=== PATIENT | male | born 1980 | race Caucasian/White ===

== ENCOUNTER 2017-03-23 19:16 | Emergency (ER) | payer MEDICAID, OTHER ==
[~2017-03-23] VITALS: Ht 170.2 cm; Wt 79.0 kg
[2017-03-23 19:24] VITALS: Ht 170.2 cm; Wt 79.0 kg
[2017-03-23] MEDS ORDERED: HYDROCODONE/APAP (5/325) TAB PO ONE (21:00)
--- NOTE | 2017-03-23 21:31 | RADRPT ---
PROCEDURE: CT Brain without contrast. CLINICAL INDICATION: Headache status post fall. TECHNIQUE: A CT of the brain was performed on a multidetector CT scanner utilizing axial sections from the skull base through the vertex without contrast. Images were reviewed on a high-resolution Modbook workstation. Exam CTDI = 42.69 mGy and the DLP = 720.22 mGy-cm. One or more of the following dose reduction techniques were used: Automated exposure control Adjustment of the mA and/or kV according to patient size. Use of iterative reconstruction technique. COMPARISON: None available FINDINGS: There is no evidence of intracranial hemorrhage, mass effect or midline shift. No abnormal intra-ax ial or extra-axial fluid collections are seen. The density of the brain is normal and the venegas/whit e matter differentiation is well preserved. 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 The osseous structures are unremarkable. The paranasal sinuses are clear. IMPRESSION: 1. No intracranial hemorrhage, mass effect or midline shift. 2. 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 RPTAT: HHO .Jose Manuel Patricia MD, Date Time Electronically viewed and signed by .Jose Manuel Patricia MD, on 03/23/2017 21:30 .O/
--- NOTE | 2017-03-23 21:37 | RADRPT ---
PROCEDURE: CT Cervical Spine. CLINICAL INDICATION: Neck pain status post fall TECHNIQUE: A CT of the cervical spine was performed on a multi-slice CT scanner utilizing high-res olution axial imaging from the skull base through the cervical thoracic junction. Sagittal, coronal , and multiplanar reformatted images were made. CTD I: 22.27 mGy and DLP: 534.31 mGy-cm One or more of the following dose reduction techniques were used: Automated exposure control. Adjustment of the mA and/or kV according to patient size. Use of iterative reconstruction technique. COMPARISON: None FINDINGS: There is straightening of the cervical lordosis. No vertebral body subluxation is seen. No fractur es are evident. The posterior elements are normally aligned. The surrounding soft tissues are norm al in appearance. The intervertebral discs are normal in height. No significant disk bulge or prot rusion is seen. The central canal and foramina are adequately patent at all levels. IMPRESSION: No acute fracture or traumatic malalignment. RPTAT: HHO .Jose Manuel Patricia MD, Date Time Electronically viewed and signed by .Jose Manuel Patricia MD, on 03/23/2017 21:36 .O/
--- NOTE | 2017-03-23 22:05 | RADRPT ---
PROCEDURE: XR thoracic Spine. CLINICAL INDICATION: Trauma to the thoracic spine status post fall off of 6 feet ladder. TECHNIQUE: AP and lateral views of the thoracic spine were obtained. COMPARISON: No prior studies are available for comparison. FINDINGS: There is normal vertebral mineralization and alignment. No acute fracture or subluxation is seen. The disc spaces are normal in appearance. The posterior elements are unremarkable. The soft tissues appear normal. IMPRESSION: Unremarkable thoracic spine. RPTAT: [facility] Physician Jeffrey Date Time Electronically viewed and signed by Physician Jeffrey on 03/23/2017 22:05 RS/
--- NOTE | 2017-03-23 22:07 | RADRPT ---
PROCEDURE: XR Lumbar Spine. CLINICAL INDICATION: Low back pain status post fall off of 6 foot ladder. TECHNIQUE: AP, lateral and cone-down lateral view of the lumbar spine were obtained. COMPARISON: No prior studies are available for comparison. FINDINGS: There is normal vertebral mineralization and alignment. No fracture or subluxation is seen. Very mild disk space narrowing at the L4-5 level. Otherwise, the remaining disc spaces are normal i n appearance. Mild degenerative changes at the L5-S1 posterior facets. Otherwise, the remaining posterior element s are unremarkable. Question mild to moderate degenerative changes in the left sacroiliac joint. The soft tissues appear normal. IMPRESSION: No acute fracture. RPTAT: [facility] Physician Jeffrey Date Time Electronically viewed and signed by Physician Jeffrey on 03/23/2017 22:06 RS/
--- NOTE | 2017-03-23 22:27 | ERD ---
ER Documentation Chief Complaint Date/Time DATE: 03/23/17 TIME: 22:25 Chief Complaint FALL YESTERDAY OFF 6FT LADDER, HIT HEAD DENIES KO. C/O ROBERTS +LAC TO HEAD HPI This is a 36-year-old male presents to the emergency department today complaining of headache, laceration to the back of his head and neck and back pain after falling off a 6 foot ladder while doing some work on the house. States he has not taken any medication for the pain. States that he thinks he lost consciousness for approximately 5 seconds. Denies any fevers or chills, vomiting. ROS All systems reviewed and are negative except as per history of present illness. Medications Home Meds Active Scripts Naproxen* (Naprosyn*) 500 Mg Tablet, 500 MG PO BID Y for PAIN AND/OR INFLAMMATION, #30 TAB Prov:BRIELLE REES PA-C 03/23/17 Hydrocodone/Acetaminophen ([place] 5-325 Tablet) 1 Each Tablet, 1 TAB PO Q6H Y for PAIN, #10 TAB Prov:BRIELLE REES PA-C 03/23/17 PMhx/Soc Medical and Surgical Hx: pt denies Medical Hx, pt denies Surgical Hx Hx Alcohol Use: No Hx Substance Use: No Hx Tobacco Use: No Smoking Status: Never smoker Physical Exam Vitals Vital Signs Date Time Temp Pulse Resp B/P Pulse Ox O2 Delivery O2 Flow Rate FiO2 03/23/17 22:59 68 20 112/61 98 Room Air 03/23/17 19:24 98.6 54 18 119/67 99 Physical Exam Const: NAD Head: 2 cm laceration post aspect of head with scabbing Eyes: Normal Conjunctiva. PERRLA, EOM intact ENT: Normal External Ears, Nose and Mouth. Neck: Full range of motion..~ No meningismus. Pulses 2 +. DNVI Resp: Clear to auscultation bilaterally Cardio: Regular rate and rhythm, no murmurs Abd: Soft, non tender, non distended. Normal bowel sounds Skin: Abrasions thoracic and lumbar spine Back: Mild thoracic and lumbar spine midline tenderness. Pulses 2+. DNVI. Full AROM Ext: No cyanosis, or edema Neur: Awake and alert Psych: Normal Mood and Affect Results 24 hrs Current Medications Medications (Trade) Dose Ordered Sig/Da Route PRN Reason Start Time Stop Time Status Last Admin Dose Admin Acetaminophen/ Hydrocodone Bitart ([place] (5/325)) 1 tab ONCE ONCE PO 03/23/17 21:00 03/23/17 21:01 DC 03/23/17 21:32 Diphtheria/ Tetanus/Acell Pertussis (Adacel) 0.5 ml ONCE ONCE IM* 03/23/17 22:30 03/23/17 22:31 DC 03/23/17 22:54 DIAGNOSTIC IMAGING REPORT Patient: ANNEMARIE RUVALCABA : 1980 Age: 36 Sex: M MR #: [id number] DOS: 03/23/17 0000 Ordering MD: BRIELLE REES PA-C Location: [facility] Room/Bed: PROCEDURE: CT Brain without contrast. CLINICAL INDICATION: Headache status post fall. TECHNIQUE: A CT of the brain was performed on a multidetector CT scanner utilizing axial sections from the skull base through the vertex without contrast. Images were reviewed on a high-resolution PACS workstation. Exam CTDI = 42.69 mGy and the DLP = 720.22 mGy-cm. One or more of the following dose reduction techniques were used: Automated exposure control Adjustment of the mA and/or kV according to patient size. Use of iterative reconstruction technique. COMPARISON: None available FINDINGS: There is no evidence of intracranial hemorrhage, mass effect or midline shift. No abnormal intra-axial or extra-axial fluid collections are seen. The density of the brain is normal and the venegas/white matter differentiation is well preserved. 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 The osseous structures are unremarkable. The paranasal sinuses are clear. IMPRESSION: 1. No intracranial hemorrhage, mass effect or midline shift. 2. 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 RPTAT: HHO .Jose Manuel Patricia MD, MD Date Time Electronically viewed and signed by .Jose Manuel Patricia MD, on 03/23/2017 21:30 .O/ CC: BRIELLE REES PA-C DIAGNOSTIC IMAGING REPORT Patient: ANNEMARIE RUVALCABA : 1980 Age: 36 Sex: M MR #: [id number] DOS: 03/23/17 0000 Ordering MD: BRIELLE REES PA-C Location: [facility] Room/Bed: PROCEDURE: CT Cervical Spine. CLINICAL INDICATION: Neck pain status post fall TECHNIQUE: A CT of the cervical spine was performed on a multi-slice CT scanner utilizing high-resolution axial imaging from the skull base through the cervical thoracic junction. Sagittal, coronal, and multiplanar reformatted images were made. CTD I: 22.27 mGy and DLP: 534.31 mGy-cm One or more of the following dose reduction techniques were used: Automated exposure control. Adjustment of the mA and/or kV according to patient size. Use of iterative reconstruction technique. COMPARISON: None FINDINGS: There is straightening of the cervical lordosis. No vertebral body subluxation is seen. No fractures are evident. The posterior elements are normally aligned. The surrounding soft tissues are normal in appearance. The intervertebral discs are normal in height. No significant disk bulge or protrusion is seen. The central canal and foramina are adequately patent at all levels. IMPRESSION: No acute fracture or traumatic malalignment. RPTAT: HHO .Jose Manuel Patricia MD, MD Date Time Electronically viewed and signed by .Jose Manuel Patricia MD, MD on 03/23/2017 21:36 .O/ CC: BRIELLE REES PA-C DIAGNOSTIC IMAGING REPORT Patient: ANNEMARIE RUVALCABA : 1980 Age: 36 Sex: M MR #: [id number] DOS: 03/23/17 0000 Ordering MD: BRIELLE REES PA-C Location: [facility] Room/Bed: PROCEDURE: XR Lumbar Spine. CLINICAL INDICATION: Low back pain status post fall off of 6 foot ladder. TECHNIQUE: AP, lateral and cone-down lateral view of the lumbar spine were obtained. COMPARISON: No prior studies are available for comparison. FINDINGS: There is normal vertebral mineralization and alignment. No fracture or subluxation is seen. Very mild disk space narrowing at the L4-5 level. Otherwise, the remaining disc spaces are normal in appearance. Mild degenerative changes at the L5-S1 posterior facets. Otherwise, the remaining posterior elements are unremarkable. Question mild to moderate degenerative changes in the left sacroiliac joint. The soft tissues appear normal. IMPRESSION: No acute fracture. RPTAT: [facility] Physician Jeffrey Date Time Electronically viewed and signed by Physician Jeffrey on 03/23/2017 22:06 RS/ CC: BRIELLE REES PA-C DIAGNOSTIC IMAGING REPORT Patient: ANNEMARIE RUVALCABA : 1980 Age: 36 Sex: M MR #: [id number] DOS: 03/23/17 0000 Ordering MD: BRIELLE REES PA-C Location: [facility] Room/Bed: PROCEDURE: XR thoracic Spine. CLINICAL INDICATION: Trauma to the thoracic spine status post fall off of 6 feet ladder. TECHNIQUE: AP and lateral views of the thoracic spine were obtained. COMPARISON: No prior studies are available for comparison. FINDINGS: There is normal vertebral mineralization and alignment. No acute fracture or subluxation is seen. The disc spaces are normal in appearance. The posterior elements are unremarkable. The soft tissues appear normal. IMPRESSION: Unremarkable thoracic spine. RPTAT: [facility] Physician Jeffrey Date Time Electronically viewed and signed by Physician Jeffrey on 03/23/2017 22:05 RS/ CC: BRIELLE REES PA-C Procedures/MDM Is a 36-year-old male who presents emergency department today complaining of a headache, back pain after falling off a ladder yesterday as well as a laceration. Patient indicated that he had poor tetracycline on his laceration. I did have the wound cleaned here in the emergency department and there is really scabbing to the area did not feel the patient requires primary closure at this time. Wound will close by secondary intention. Given patient's complaints of headache and his significant fall I did obtain images. Per the radiology report head CT noncontrast shows no intracranial hemorrhage, mass-effect or midline shift. 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 CT cervical spine show no acute fracture or dislocation. There is no significant disc bulge or protrusion. Images of the thoracic spine are unremarkable. There is no acute fracture dislocation. Images of the lumbar spine show no acute fracture dislocation. There is very mild disc space narrowing at L4 and 5 mild degenerative changes L5 and S1 in the posterior facets. Patient symptoms at this time is consistent with acute head injury and neck and back pain most likely contusion, sprain versus strain secondary to fall. Patient's tetanus was updated here in the emergency department.Patient was given [place] for pain. He was given a short course of [place], Naprosyn for home. At this time the patient is stable for discharge and outpatient management. Patient should follow up with their PCP in the next 1-2 days. They may return to the emergency department sooner for any persistent or worsening of symptoms. Patient understood and agreed with the plan. Departure Diagnosis: Primary Impression: Fall Encounter type: initial encounter Qualified Code: W19.XXXA - Fall, initial encounter Additional Impression: Acute head injury Encounter type: initial encounter Qualified Code: S09.90XA - Acute head injury, initial encounter Condition: Fair BRIELLE REES PA-C Mar 23, 2017 22:27
[2017-03-23] MEDS ORDERED: DIPHTH/TET/ACEL PERTUSS (ADULT) 0.5 ML VIAL IM* ONE (22:30)
[2017-03-23] MEDS ORDERED: NAPR-260 PO (22:32)
[2017-03-23] MEDS ORDERED: HYDR-906 PO (22:32)
[2017-03-23 22:59] VITALS: BP 112/61; PULSE 68; RESP 20
== END 2017-03-23 23:00 | disposition home or self-care (01) ==
LOC: FTE 19:16
DX: S09.90XA Unspecified injury of head, initial encounter (principal); R51 Headache; W11.XXXA Fall on and from ladder, initial encounter; Y92.9 Unspecified place or not applicable; Z23 Encounter for immunization
CPT/HCPCS: 70450; 72072; 72100; 72125; 90471; 90715; Z7502; Z7610